=== PATIENT | female | born 1965 | race Caucasian/White ===

== ENCOUNTER → 2020-09-24 11:51 | Outpatient (CLI) | payer OTHER ==
--- NOTE | 2020-09-26 10:01 | ST ---
PATIENT:ALEX VELIZ MEDICAL RECORD: [id number] SEX: F LOCATION:[facility] ORDER #: ADMISSION DATE: 09/24/20 AGE OF PATIENT: 55 REFERRING PHYSICIAN: INTERPRETING PHYSICIAN: YANICK MORELAND MD DATE OF SERVICE: 09/24/2020 PROCEDURE: Treadmill stress test. FINDINGS: Baseline ECG is normal. Exercised 3 minutes and 30 seconds on Roberto protocol. Maximum heart rate is 115 beats per minute, was 75% max predicted. No ECG changes of ischemia. No symptoms of ischemia. Test aborted due to inability to continue exercise. No arrhythmias were noted. IMPRESSION: Indeterminate treadmill stress test. Consider further imaging modalities to further evaluate anatomy. TRANSINT:[id number] Voice Confirmation ID: [id number] DOCUMENT ID: [id number] YANICK MORELAND MD at 1001 CC: [id number] DICTATION DATE: 09/25/20 0801 MARINE ELECTRICIAN APPRENTICE: 09/25/20 0907 DEP CLI 09/24/20 [id number] [place] [address]
--- NOTE | 2020-09-26 10:02 | EC ---
PATIENT:ALEX VELIZ DATE OF SERVICE: 09/24/20 SEX: F MEDICAL RECORD: [id number] DATE OF : 65 [facility] AGE OF PATIENT: 55 ADMISSION DATE: 09/24/20 REFERRING PHYSICIAN: INTERPRETING PHYSICIAN: YANICK MORELAND MD ECHOCARDIOGRAM REPORT ECHO CHARGES 4 ECHO COMPLETE Date: 09/24/20 CLINICAL DIAGNOSIS: CHEST PAIN, HEART MURMUR ECHOCARDIOGRAPHIC MEASUREMENTS (adult normal given) AC root (d.<3.7cm) 3.1 cm LV Septum d (<1.2 cm> 0.9 cm Valve Excursion 1.5 cm LV Septum (systole) 1.1 cm Left Atria (s.<4.0cm> 3.2 cm LVPW d(<1.2cm) 1.0 cm RV (d.<2.3cm) 4.1 cm LVPW (sytole) 1.3 cm LV diastole(<5.6CM) 4.5 cm MV E-F(>70mm/sec) cm LV systole 3.5 cm LVOT Diameter 1.8 cm MV exc.(>10mm) cm Est.ejection fraction (50-75%) % DOPPLER: LVIT cm/sec A 61.0 cm/sec E 69.0 cm/sec LA cm/sec RVSP 28 mmHg LVOT 88 cm/sec AOP1/2T m/s Asc. 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 Celaya TAPE# PACS Pericardial Effusion N DATE OF SERVICE: Adequate 2D echo, color flow imaging, spectral Doppler and M-Mode. FINDINGS: No LVH. LV internal dimension is normal. Wall motion is normal. EF is greater than or equal to 55%. Aortic valve is tricuspid. No evidence of stenosis by Doppler interrogation. Left atrium is normal at 3.2 cm. Mitral valve shows no prolapse. Trace MR. Right side is grossly normal. Mid TR. TRANSINT:[id number] Voice Confirmation ID: [id number] DOCUMENT ID: [id number] ECHOCARDIOGRAM REPORT [id number] ALEX VELIZ,YANICK Price MD at 1002 CC: [id number] DICTATION DATE: 09/25/20 1525 TAPPER SHANK: 09/25/20 2258 DEP CLI 09/24/20 [id number] [place] [address]
== END | disposition home or self-care (01) ==
LOC: D.HCCARDIO 11:30 → D.HCCECHO 13:00
PROVIDERS: ATTEND Internal Medicine Interventional Cardiology
DX: R07.9 Chest pain, unspecified (principal); R01.1 Cardiac murmur, unspecified

== ENCOUNTER → 2020-10-05 08:27 | Outpatient (CLI) | payer OTHER | END | disposition home or self-care (01) | LOC: D.HCCARDIO 08:27 | PROVIDERS: ATTEND Internal Medicine Interventional Cardiology | DX: R94.30 Abnormal result of cardiovascular function study, unspecified (principal) ==